=== PATIENT | female | born 1945 ===

== ENCOUNTER 2023-05-31 06:38 | Day surgery (SDC) | payer MEDICARE, OTHER, SELFPAY ==
--- NOTE | 2023-05-04 09:17 | CM ---
Addendum entered by Lori Gallegos 05/24/23 13:32:
Spoke again with patient. She has obtained a rolling walker and was reminded to bring it with her to the hospital on the day of surgery.
Original Note:
Patient is scheduled for an elective L TKR on 05/31/23- she is a same day patient. Spoke with patient prior to surgery. Introduced role of Orthopedic Navigator. Patient reports that she lives with her in a two story home. There are no steps to
enter and patient has a first floor set up. She currently functions independently. She has a cane and will be borrowing a rolling walker. She has never had VN services. PCP is Adina Mays.
Discussed orthopedic program and post surgical plans. Reviewed that she will have VN services initially (medicare.gov website and ratings reviewed) and will then start outpatient PT. Patient selects [facility] (face sheet faxed to [facility] to facilitate
confirmation of benefits) for her home care needs and will go to [facility] for outpatient PT.
Patient is in agreement with plan and states that her will be home with her.
Patient has completed online education.
Plan: Orthopedic Navigator will remain available to assist with the care of patient and will reassess discharge needs after surgery.
[2023-05-13 11:48] LABS: Hemoglobin 14.3 g/dL (12.0-16.0); Mean Corp Hgb Conc. 34.9 g/dL (33.0-37.0); Mean Corpuscular Hgb 36.4 pg (27.0-31.0); Mean Corpuscular Volume 104.3 fL (81.0-99.0); Platelet Count 186 10^3/uL (130-400); Red Blood Cell Count 3.93 10^6/uL (4.20-5.40); Red Cell Dist. Width 12.5 % (11.5-14.5); White Blood Cell Count 4.2 10^3/uL (4.8-10.8)
[2023-05-13 12:01] LABS: ALT (SGPT) 23 U/L (0-35); AST (SGOT) 31 U/L (14-36); Albumin 4.1 g/dl (3.5-5.0); Alkaline Phosphatase 87 U/L (38-126); Blood Urea Nitrogen 27 mg/dl (7-17); Calcium 9.6 mg/dl (8.4-10.2); Carbon Dioxide 27 mmol/L (22-30); Glucose 97 mg/dl (70-99); Potassium 4.6 mmol/L (3.5-5.1); Sodium 138 mmol/L (135-145); Total Bilirubin 0.8 mg/dl (0.2-1.3); Total Protein 6.5 g/dl (6.3-8.2); eGFR 42.62
[2023-05-13 12:14] LABS: Chloride 105 mmol/L (98-107)
[2023-05-13 12:32] VITALS: BMI 25.9
[2023-05-13 14:20] LABS: Glycohemoglobin (HgbA1c) 5.4 % (4.0-5.6)
[2023-05-13 16:23] VITALS: BMI 25.9
[2023-05-31] VITALS (15 sets, daily range): BP systolic 98–135; BP diastolic 56–81; PULSE 75; O2SAT 95
[2023-05-31] MEDS: NORMOSOL-R 1000 IV (07:52)
[2023-05-31] MEDS: CELEBREX 200 MG PO (07:52)
[2023-05-31] MEDS: TYLENOL 650 MG PO (07:52)
--- NOTE | 2023-05-31 08:27 | W.PN.UPDATE ---
Update Note
Progress Note Update
PCP phone number inadvertently left out of patient's H&P.
PCP (Dr. Adina Mays) can be reached at [phone].
--- NOTE | 2023-05-31 08:34 | CM ---
Patient is here for planned L TKR. Met with patient at bedside to review discharge plans. Patient will be returning home today with services through [facility]. On , 06/03, patient will start outpatient PT at [facility]. Reviewed MD follow up in
two weeks and patient is aware of need to schedule appointment.
Patient states that her will be bringing her rolling walker to the hospital after surgery.
PT and VN will be kept updated as to progress and discharge plans.
[2023-05-31] MEDS: ANCEF 5 IV (13:24)
== END 2023-05-31 15:00 | disposition home health service (06) ==
LOC: SDS 06:38
PROVIDERS: ATTENDING PHYSICIAN Specialist; FAMILY PHYSICIAN Family Medicine; OTHER PHYSICIAN Physician Assistant
DX: M17.12 Unilateral primary osteoarthritis, left knee (principal); N18.30 Chronic kidney disease, stage 3 unspecified
CPT/HCPCS: 27447; 36415; 73560; 80053; 83036; 85027; 87070; 93005; 97161; C1713; C1776